=== PATIENT | male | born 1955 | race Caucasian/White ===

== ENCOUNTER 2016-12-29 22:13 | Emergency (ER) | payer BC ==
[2016-12-29 22:51] LABS: #Eosinphils 0.4 thou/uL (0.0-0.7); #Lymphocytes 2.7 thou/uL (1.20-3.40); #Neutrophils 3.9 thou/uL (1.40-6.50); %Basophils 0.5 % (0.0-1.0); %Eosinophils 4.7 % (0.0-10.0); %Lymphocytes 33.1 % (21.0-51.0); %Monocytes 12.6 % (0.0-10.0); Hematocrit 40.7 % (42.0-52.0); Mean Platelet Volume 6.9 fL (7.4-10.4); Red Blood Cell (RBC) Count 4.24 mill/uL (4.70-6.10)
--- NOTE | 2016-12-29 23:25 | RAD ---
PORTABLE AP CHEST X-RAY 12/29/16 HISTORY: Bilateral lower extremity swelling. Peripheral edema. COMPARISON: None available. FINDINGS: The cardiac silhouette is magnified by projection. Pulmonary vasculature is within normal limits. Th ere is mild elevation of the right hemidiaphragm. Calcified mediastinal lymph nodes are seen related to prior granulomatous disease. Osseous structures appear intact. IMPRESSION: No acute cardiopulmonary process. POS: [facility]
[2016-12-29 23:31] LABS: ALT (SGPT) 81 U/L (8-55); AST (SGOT) 63 U/L (5-34); Alkaline Phosphatase 102 U/L (40-150); Anion Gap 14 mmol/L (10-20); BUN (Urea Nitrogen) 12 mg/dL (8.4-25.7); Bilirubin, Total 0.3 mg/dL (0.2-1.2); Calc. Creatinine Clearance 0 mL/min (70-130); Calcium 8.9 mg/dL (7.8-10.44); Carbon Dioxide 23 mmol/L (22-29); Chloride 107 mmol/L (98-107); Estimated GFR-MDRD 88; Globulin 3.2 g/dL (2.4-3.5); Protein, Total 6.9 g/dL (6.0-8.3)
[2016-12-29 23:42] LABS: Troponin I Less than 0.010 ng/mL (< 0.028)
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
== END 2016-12-30 00:16 | disposition home or self-care (01) ==
LOC: ERS 22:13
DX: R60.0 Localized edema (principal); I10 Essential (primary) hypertension; Z86.73 Personal history of transient ischemic attack (TIA), and cerebral infarction without residual deficits; Z79.82 Long term (current) use of aspirin; Z79.899 Other long term (current) drug therapy
CPT/HCPCS: 71010; 80053; 82553; 83880; 84484; 85025; 85379; 93005; 93970